=== PATIENT | female | born 1985 | race Caucasian/White ===

== ENCOUNTER 2019-05-12 19:05 | Emergency (ER) | payer OTHER ==
[~2019-05-12] VITALS: Ht 165.1 cm; Wt 60.8 kg
[2019-05-12] MEDS ORDERED: NOHOMEMEDICATIONS (19:15)
[2019-05-12] MEDS ORDERED: PROMETH-CODEIN 65 ML PO (20:30)
[2019-05-12] MEDS ORDERED: PROAIR HFA8.5 GM INH (20:30)
[2019-05-12] MEDS ORDERED: AUGMENTIN 875-1 EACH PO (20:30)
[2019-05-12] MEDS ORDERED: PREDNISONE50 MG PO (20:31)
[2019-05-12 20:41] VITALS: BP 132/74
[2019-05-12] MEDS ORDERED: VENTOLIN HFA 1818 GM INH (20:45)
== END 2019-05-12 20:41 | disposition home or self-care (01) ==
LOC: M.ERS 19:05
DX: J40 Bronchitis, not specified as acute or chronic (principal); J06.9 Acute upper respiratory infection, unspecified; L53.9 Erythematous condition, unspecified; F17.210 Nicotine dependence, cigarettes, uncomplicated